=== PATIENT | female | born 2000 | race Caucasian/White ===

== ENCOUNTER 2025-06-16 13:23 | Inpatient (IN) ==
--- NOTE | 2025-06-16 13:39 | Emergency Department Note ---
Impression & Plan Near syncope, Pulmonary emboli, Anemia, Tachycardia, Vaginal delivery, UTI (urinary tract infection) ED Provider Note NAME: VITALY DOBBS AGE: 24 SEX: F : 2000 ARRIVES VIA: Ambulance INFORMANT: [Patient] ED PROVIDER(S): [Maurice Johnson MD] CHIEF COMPLAINT: Dizziness HISTORY OF PRESENT ILLNESS: Patient is a 24-year-old female who states that about an hour ago, she was sitting and suddenly felt dizzy, her heart was racing. She felt faint and her vision was blurry. She did not lose consciousness. No chest pain. She was not short of breath. She presents by ambulance for evaluation. The patient states that she did have a vaginal delivery just 2 days ago, she has not had excessive bleeding since discharge. There were no complications with the delivery. There has been no cough or fever. No urinary complaints. She has no history of previous syncope. PMHx/PSHx/Social Hx: See Below PHYSICAL EXAM: GENERAL: Patient is in no acute distress. HEENT: No acute trauma, normocephalic atraumatic, mucous membranes moist, no nasal congestion. NECK: No stridor, no adenopathy, no meningismus, trachea is midline. LUNGS: Clear to auscultation bilaterally, no wheeze, no rhonchi, breath sounds equal. HEART: Mildly tachycardic, regular rhythm, no murmurs. ABDOMEN: Soft, mildly tender in the lower abdomen bilaterally. No distention. EXTREMITIES: No cyanosis, full range of motion of all the joints without pain or difficulty. Mild bilateral pedal edema. NEUROLOGIC: Oriented x 3, no acute motor or sensory deficits, no focal weakness. SKIN: No jaundice, no diaphoresis. DIFFERENTIAL DIAGNOSIS: Vasovagal syncope, dehydration, anemia, electrolyte imbalance, UTI, PE, among others. EMERGENCY DEPARTMENT PROCEDURES: MEDICAL DECISION MAKING: There is a mild leukocytosis, this could be consistent with infection or just the stress of today's presentation. The patient was anemic at 10.5, there are no old values to use for comparison. There was a normal platelet count. No bandemia. No renal failure or significant electrolyte abnormality. There were some very subtle liver enzyme elevations, the bilirubin was normal. The patient appeared to be in a euthyroid state. ECG shows a sinus tachycardia, no ST elevation. Cardiac enzyme testing x 1 did not show findings of acute cardiac injury. Urinalysis did show evidence for infection. Bilateral lower extremity ultrasound did not show any findings of DVT. Chest CT did suggest pulmonary emboli in the left lower lung. Chest x-ray did not show mediastinal widening, pneumonia or pneumothorax. On exam, the patient was not hypoxic. She was at times tachycardic. Patient received IV saline for hydration. She was given IV ceftriaxone for the UTI. She eventually was given IV heparin as a bolus and drip. We used the low- dose of protocol. The patient presents with a near syncopal spell. She presents tachycardic. She is status post vaginal delivery. Certainly, PE seems likely as a cause for her presentation. I do think hospitalization, anticoagulation, further workup is warranted. I spoke with [employer]. I did speak with case management, the on-call hospitalist was consulted. Patient and her significant other are aware of the need for the hospital stay, Of note, patient did, at 1 point during her ER stay, complain of some right flank discomfort. She did not want anything for pain. This flank pain may be related to her urinary findings. Prior/Outside records/notes reviewed: Today's EMS notes describing her presentation and transport to this hospital. ECG per my interpretation: Indication was near syncope. The ECG shows a sinus tachycardia with a rate of 105. There is no acute ST elevation, there are no PVCs. The QTc is 449. Continuous Cardiac Monitoring per my interpretation: An order was placed for continuous cardiac monitoring. The monitor shows a rate of 102 with sinus tachycardia. Imaging/x-ray results per my interpretation: Chest x-ray does not show mediastinal widening, pneumonia or pneumothorax. Chronic Medical/Social conditions affecting care: Recent vaginal delivery just a few days ago. Care/Management discussed with: Lyric BARREL COATER-Dr. Rosen. Case management and the on-call hospitalist. Level of care consideration(s): After review of the information above and other included data: --I believe the patient requires escalation of care to admission Critical Care Note: I have personally spent 41 minutes of critical care time in the direct management of this patient. This includes bedside care, interpretation of diagnostic studies, and testing, discussion with consultants, patient, and family members, and other required patient management activities. This 41 minutes is in excess of all separately billable procedures. DISPOSITION: Admission Past Med/Surg History Problem List (Updated 06/16/25 @ 19:03 by Maurice Johnson MD) UTI (urinary tract infection) (Acute) Vaginal delivery (Acute) Tachycardia (Acute) Anemia (Acute) Pulmonary emboli (Acute) Near syncope (Acute) Anemia Abnormal urinalysis Palpitations Spell of dizziness Pulmonary emboli Medical History No significant medical problems Social History Smoking Status: Never smoker Preferred Language: Swazi Feels Safe at Home: Yes Home Meds Home Medications Medication Instructions Recorded Confirmed acetaminophen 325 mg tablet 325 mg PO UD PRN Pain 06/16/25 06/16/25 ferrous sulfate 325 mg (65 mg 325 mg PO DAILY 06/16/25 06/16/25 iron) tablet (FeroSul) ibuprofen 600 mg tablet 600 mg PO UD PRN Pain 06/16/25 06/16/25 norethindrone (contraceptive) 0.35 0.35 mg PO DAILY 06/16/25 06/16/25 mg tablet polyethylene glycol 3350 17 17 g PO UD 06/16/25 06/16/25 gram/dose oral powder Results & Data (ED) Vital Signs Vital Signs - 24 hr 06/16/25 13:47 06/16/25 13:50 06/16/25 13:50 Pulse Rate 100 H 80 Pulse Rate [Apical] 80 Pulse Strength [Apical] Respiratory Rate 14 14 Respiratory Effort / Characteristics Non-Labored Spontaneous Respiratory Depth Normal Respiratory Pattern Regular Blood Pressure Blood Pressure [Right Arm] 152/87 H Blood Pressure Mean Blood Pressure Mean [Right Arm] 108 Blood Pressure Position Blood Pressure Position [Right Arm] Semi-fowlers Pulse Oximetry 100 100 Oxygen Delivery Method Room Air Room Air Sepsis Recent Fever Within 48 Hours Sepsis New/Unexplained Change in Mental Status Sepsis Action Taken by Nursing 06/16/25 13:53 06/16/25 13:54 06/16/25 15:05 Pulse Rate 80 Pulse Rate [Apical] 88 98 H Pulse Strength [Apical] Normal Respiratory Rate 14 18 21 Respiratory Effort / Characteristics Non-Labored Spontaneous Non-Labored Spontaneous Non-Labored Spontaneous Respiratory Depth Normal Normal Normal Respiratory Pattern Regular Regular Blood Pressure 146/90 H Blood Pressure [Right Arm] 146/90 H 140/87 Blood Pressure Mean 108 Blood Pressure Mean [Right Arm] 108 104 Blood Pressure Position Semi-fowlers Blood Pressure Position [Right Arm] Pulse Oximetry 100 98 97 Oxygen Delivery Method Room Air Room Air Room Air Sepsis Recent Fever Within 48 Hours No Sepsis New/Unexplained Change in Mental Status No Sepsis Action Taken by Nursing No Action Required 06/16/25 17:00 06/16/25 17:45 Pulse Rate 101 H Pulse Rate [Apical] 88 Pulse Strength [Apical] Respiratory Rate 18 Respiratory Effort / Characteristics Non-Labored Spontaneous Respiratory Depth Normal Respiratory Pattern Regular Blood Pressure Blood Pressure [Right Arm] 138/88 Blood Pressure Mean Blood Pressure Mean [Right Arm] 104 Blood Pressure Position Blood Pressure Position [Right Arm] Semi-fowlers Pulse Oximetry 100 Oxygen Delivery Method Room Air Sepsis Recent Fever Within 48 Hours Sepsis New/Unexplained Change in Mental Status Sepsis Action Taken by [facility] Medications Current Medication List: was personally reviewed by me Laboratory Data Attestation: I reviewed the patient's lab results. 06/16/25 13:37 06/16/25 13:37 Lab Results 06/16/25 06/16/25 Range/Units 13:37 14:50 WBC 11.46 H (4.8-10.8) K/ul RBC 3.89 L (4.20-5.40) M/uL Hgb 10.5 L (12.0-16.0) g/dl Hct 31.6 L (37.0-47.0) % MCV 81.2 (80.0-100.0) fL MCH 27.0 (25.0-34.0) pg MCHC 33.2 (32.0-36.0) g/dL RDW Std Deviation 43.9 (36.4-46.3) fL RDW Coeff of Alan 14.8 H (11.5-14.5) % Plt Count 198 (130-400) K/uL MPV 10.3 (9.4-12.4) fL Immature Gran % (Auto) 1.3 % Neut % (Auto) 75.2 % Lymph % (Auto) 11.4 % [place] % (Auto) 8.0 % Eos % (Auto) 3.5 % Baso % (Auto) 0.6 % Neut # (Auto) 8.61 H (1.40-6.50) K/uL Lymph # (Auto) 1.31 (1.20-3.40) K/uL [place] # (Auto) 0.92 H (0.11-0.59) K/uL Eos # (Auto) 0.40 (0.00-0.50) K/uL Baso # (Auto) 0.07 (0.00-0.20) K/uL Immature Gran # (Auto) 0.15 (0.01-0.20) K/uL Sodium 142 (136-145) mmol/L Potassium 3.4 L (3.5-5.1) mmol/L Chloride 109 H (98-107) mmol/L Carbon Dioxide 25 (21-32) mmol/L Anion Gap 8 (3-11) BUN 7 (6-23) mg/dl Creatinine 0.51 L (0.6-1.2) mg/dl Est Cr Clr Drug Dosing 193.4 ml/min eGFR 134.43 BUN/Creatinine Ratio 13.7 (10-20) Glucose 103 H (70-99(Fasting)) mg/dl Calcium 8.9 (8.6-10.3) mg/dl Magnesium 1.8 (1.7-2.4) mg/dl Total Bilirubin 0.3 (0.2-1.0) mg/dl AST 40 H (13-39) U/L ALT 31 (7-52) U/L Alkaline Phosphatase 106 H (34-104) U/L Troponin I High Sens 5.3 (0-14) pg/ml Total Protein 6.1 (6.0-8.3) gm/dl Albumin 3.4 (3.4-5.0) gm/dl Globulin 2.7 (2.5-4.0) gm/dl Albumin/Globulin Ratio 1.3 (0.9-2) TSH 1.592 (0.300-4.500) uIu/ml Urine Color Yellow Urine Appearance Slightly Cloudy (Clear) Urine pH 7.5 (4.5-7.5) Ur Specific [place]der[place]ott 1.015 (1.000-1.030) Urine Protein 1+ H (Negative) Urine Glucose (UA) Negative (Negative) Urine Ketones 1+ H (Negative) Urine Blood 3+ H (Negative) Urine Nitrite Negative (Negative) Urine Bilirubin Negative (Negative) Urine Urobilinogen Negative (Negative) Ur Leukocyte Esterase 3+ H (Negative) Urine WBC (Auto) >50 H (0-5) /hpf Urine RBC (Auto) >20 H (0-2) /hpf U Hyaline Cast (Auto) 3-5 H (0-2) /lpf U Epithel Cells (Auto) 3-5 H (0-2) /hpf Urine Bacteria (Auto) 1+ H (None Seen) Urine RBC Not Reportable Urine WBC Not Reportable Ur Epithelial Cells Not Reportable Urine Bacteria Not Reportable Urine Comment Administered Medications Heparin Sodium/Dextrose (Heparin 54219 Unit/500 Ml D5w) 25,000 units in 500 mls @ 17 mls/hr IV .Q24H ZAC; Protocol Stop: 07/16/25 17:29 Last Admin: 06/16/25 17:59 Dose: 850 units/hr, 17 mls/hr Documented By: aruna Co-signed By: TUYET Discontinued Medications Heparin Sodium (Porcine) (Heparin Sod (Porcine) 1000 Unit/Ml) 1 units IV NOW ONE Stop: 06/16/25 17:31 Last Admin: 06/16/25 17:58 Dose: 4,000 units Documented By: aruna Co-signed By: TUYET Heparin Sodium/Dextrose (Heparin Iv Adult Wt-Based Low-Dose W/ Initial Bolus Protocol) 1 each IV NOW STA; Protocol Stop: 06/16/25 17:16 Last Admin: 06/16/25 18:44 Dose: Not Given Documented By: TUYET Sodium Chloride (Nss) 1,000 mls @ 999 mls/hr IV .Q1H1M ONE Stop: 06/16/25 14:33 Last Infusion: 06/16/25 15:04 Dose: Infused Documented By: Admin: 06/16/25 13:53 Dose: 999 mls/hr Documented By: RICHA Ceftriaxone Sodium (Rocephin) 2,000 mg in 50 mls @ 100 mls/hr IV NOW STA Stop: 06/16/25 18:25 Last Admin: 06/16/25 18:30 Dose: 100 mls/hr Documented By: TUYET Ioversol (Optiray 320 125ml) 110 ml IV ONCE ONE Stop: 06/16/25 15:01 Last Admin: 06/16/25 15:00 Dose: 110 ml Documented By: Imaging Data Radiologist's Impression: Chest CTA 06/16/25 13:33 CT angio chest PE protocol CT DOSE: 629.85 mGy.cm HISTORY: PE. TECHNIQUE: Multiple CTA images of the chest were obtained after the intravenous administration of 110 ml Optiray. Coronal and sagittal MIPS were obtained from the axial data set and were submitted for review. All measurements were obtained according to NASCET criteria. A dose lowering technique was utilized adhering to the principles of ALARA. COMPARISON STUDY: None FINDINGS: There is no pulmonary consolidation or pleural effusion. No pneumothorax. No enlarged adenopathy. No pericardial effusion. No thoracic aortic aneurysm or dissection. Pulmonary artery contrast bolus is suboptimal and there is spray artifact. There are a few possible tiny left lower lobe pulmonary emboli versus artifact. No other evidence of pulmonary embolism seen. No acute osseous findings. IMPRESSION: Limited exam. 1. Artifact versus a few tiny left lower lobe pulmonary emboli. 2. No other evidence of pulmonary embolism seen. ACT 112: Negative or not required by law. The above report was generated using voice recognition software. It may contain grammatical, syntax or spelling errors. Electronically signed by: Hiren Guo M.D. 06/16/2025 3:28 PM Chest X-Ray 06/16/25 13:33 SINGLE VIEW CHEST CLINICAL HISTORY: Generalized weakness. FINDINGS: An AP, portable, upright chest radiograph is obtained. No prior studies are available for comparison at the time of dictation. The cardiomediastinal silhouette is unremarkable. The lungs and pleural spaces are clear. No pneumothorax is seen. The bony thorax is grossly intact. IMPRESSION: No active disease in the chest. ACT 112: Negative or not required by law. Electronically signed by: Maurice Marroquin M.D. 06/16/2025 1:53 PM Venous Doppler Study 06/16/25 15:32 Technique: Venous ultrasound evaluation was performed utilizing grayscale, color Doppler and wave form evaluation. Images were also obtained with and without compression Findings: The bilateral common femoral, superficial femoral, popliteal, and visualized calf veins demonstrate normal anechoic lumens with full compressibility. Normal flow is seen on color Doppler images. Expected waveforms were produced with augmentation maneuvers Impression: No evidence of deep venous thrombosis Electronically signed by Facundo Bazan 06-16-2025 4:39 PM Discharge Plan Visit Data Chief Complaint: Syncope (Near Syncope) Stated Complaint: DIZZY ED Provider: Maurice Johnson Discharge Problem: Near syncope, Pulmonary emboli, Anemia, Tachycardia, Vaginal delivery, UTI (urinary tract infection) Patient Disposition: Admitted As Inpatient Condition: Fair Forms Stand Alone Forms: [facility] Prescriptions Prescriptions: No Action acetaminophen 325 mg tablet 325 mg PO UD PRN (Reason: Pain) ferrous sulfate [FeroSul] 325 mg (65 mg iron) tablet 325 mg PO DAILY ibuprofen 600 mg tablet 600 mg PO UD PRN (Reason: Pain) polyethylene glycol 3350 17 gram/dose powder 17 g PO UD norethindrone (contraceptive) 0.35 mg tablet 0.35 mg PO DAILY Referrals Referrals: PCP,NO [Primary Care Provider] - Discharge Problem: Pulmonary emboli Qualifiers: Pulmonary embolism type: unspecified Chronicity: acute Acute cor pulmonale presence: unspecified Qualified Code(s): I26.99 - Other pulmonary embolism without acute cor pulmonale Anemia Qualifiers: Anemia type: unspecified type Qualified Code(s): D64.9 - Anemia, unspecified UTI (urinary tract infection) Qualifiers: Urinary tract infection type: acute cystitis Hematuria presence: with hematuria Qualified Code(s): N30.01 - Acute cystitis with hematuria
[2025-06-16 13:53] LABS: Hematocrit (blood only) 31.6 % (37.0-47.0); Hemoglobin 10.5 g/dl (12.0-16.0); Immature Granulocytes # (auto) 0.15 K/uL (0.01-0.20); Immature Granulocytes % (auto) 1.3 %; Mean Corpuscular Hemoglobin 27.0 pg (25.0-34.0); Mean Corpuscular Volume 81.2 fL (80.0-100.0); Platelet Count 198 K/uL (130-400); RDW Standard Deviation 43.9 fL (36.4-46.3); Red Blood Count 3.89 M/uL (4.20-5.40); White Blood Count 11.46 K/ul (4.8-10.8)
[2025-06-16] MEDS: SODIUM CHLORIDE 0.9% 1,000 ML IV ONE ×2 (13:53→20:41)
--- NOTE | 2025-06-16 13:54 | XRay Report ---
SINGLE VIEW CHEST CLINICAL HISTORY: Generalized weakness. FINDINGS: An AP, portable, upright chest radiograph is obtained. No prior studies are available for c omparison at the time of dictation. The cardiomediastinal silhouette is unremarkable. The lungs and p leural spaces are clear. No pneumothorax is seen. The bony thorax is grossly intact. IMPRESSION: No active disease in the chest. ACT 112: Negative or not required by law. Electronically signed by: Maurice Marroquin M.D. 06/16/2025 1:53 PM
[2025-06-16 14:11] LABS: Alanine Aminotransferase 31.0 U/L (7-52); Albumin Globulin Ratio 1.3 (0.9-2); Alkaline Phosphatase 106.0 U/L (34-104); Anion Gap 8.0 (3-11); Bilirubin,Total 0.3 mg/dl (0.2-1.0); Blood Urea Nitrogen 7.0 mg/dl (6-23); Calcium 8.9 mg/dl (8.6-10.3); Carbon Dioxide 25.0 mmol/L (21-32); Chloride 109.0 mmol/L (98-107); Creatinine Clr Calc Pharmacy 193.4 ml/min; Globulin 2.7 gm/dl (2.5-4.0); Glucose 103.0 mg/dl (70-99(Fasting)); Magnesium 1.8 mg/dl (1.7-2.4); Potassium 3.4 mmol/L (3.5-5.1); Sodium 142.0 mmol/L (136-145); Total Protein 6.1 gm/dl (6.0-8.3)
[2025-06-16 14:27] LABS: Thyroid Stimulating Hormone 1.592 uIu/ml (0.300-4.500)
[2025-06-16] MEDS: OPTIRAY 320 125ml IV ONE (15:00)
[2025-06-16 15:10] LABS: Appearance Urine Slightly Cloudy (Clear); Glucose Urine UA Negative (Negative)
--- NOTE | 2025-06-16 15:29 | CT Scan Report ---
CT angio chest PE protocol CT DOSE: 629.85 mGy.cm HISTORY: PE. TECHNIQUE: Multiple CTA images of the chest were obtained after the intravenous administration of 110 ml Optiray. Coronal and sagittal MIPS were obtained from the axial data set and were submitted for review. All measurements were obtained according to NASCET criteria. A dose lowering technique was u tilized adhering to the principles of ALARA. COMPARISON STUDY: None FINDINGS: There is no pulmonary consolidation or pleural effusion. No pneumothorax. No enlarged adeno samira. No pericardial effusion. No thoracic aortic aneurysm or dissection. Pulmonary artery contrast bolus is suboptimal and there is spray artifact. There are a few possible tiny left lower lobe pulmon jing emboli versus artifact. No other evidence of pulmonary embolism seen. No acute osseous findings. IMPRESSION: Limited exam. 1. Artifact versus a few tiny left lower lobe pulmonary emboli. 2. No other evidence of pulmonary embolism seen. ACT 112: Negative or not required by law. The above report was generated using voice recognition software. It may contain grammatical, syntax o r spelling errors. Electronically signed by: Hiren Guo M.D. 06/16/2025 3:28 PM
[2025-06-16 15:35] LABS: Bacteria Urine Automated 1+ (None Seen); RBC Urine Automated >20 /hpf (0-2); WBC Urine Automated >50 /hpf (0-5)
--- NOTE | 2025-06-16 16:39 | Ultrasound Report ---
Technique: Venous ultrasound evaluation was performed utilizing grayscale, color Doppler and wave form evaluation. Images were also obtained with and without compression Findings: The bilateral common femoral, superficial femoral, popliteal, and visualized calf veins demonstrate normal anechoic lumens with full compressibility. Normal flow is seen on color Doppler images. Expected waveforms were produced with augmentation maneuvers Impression: No evidence of deep venous thrombosis Electronically signed by Facundo Bazan 06-16-2025 4:39 PM
--- NOTE | 2025-06-16 17:21 | History & Physical Report ---
Date of Service June 16, 2025 Assessment & Plan (1) Spell of dizziness: (2) Palpitations: (3) Pulmonary emboli: (4) Abnormal urinalysis: (5) Anemia: Plan Pt is a 24y/o F with PMHx significant for antepartum anemia, history of heart palpitations during with negative OP Ziopatch monitoring and GERD who presented to the ED via EMS with complaints of new-onset dizziness, palpitations and blurry vision. Was found to have a few possible tiny LLL pulmonary emboli vs artifact on her chest CTA. Recent . Had normal spontaneous vaginal delivery () on 06/13/25 at [facility]. Currently . Found to be tachycardic in ED. No recorded hypoxia. Chest CTA: No pulmonary consolidation or pleural effusion. No pneumothorax. No pericardial effusion. No thoracic aortic aneurysm or dissection. Pulmonary artery contrast bolus is suboptimal and there is spray artifact. There are a few possible tiny left lower lobe pulmonary emboli versus artifact. No other evidence of pulmonary embolism seen. Case discussed b/n ED provider and on-call SPECIAL DIET COOK, Dr. Rosen. Feels pt is stable from OB perspective for low-dose IV heparin given possible pulmonary emboli seen on chest CTA. #Dizzy spell with blurry vision #Palpitations #LLL pulmonary emboli vs artifact on chest CTA Low dose IV heparin initiated in ED --> continue BLE venous doppler US: no evidence of DVT EKG: sinus tachycardia, no acute ST changes Check TTE, re: r/o any underlying peripartum cardiomyopathy given presenting sx Telemetry monitoring #Recent on 06/13/25 at [facility] SPECIAL DIET COOK consulted for routine care Monitor vaginal bleeding, H/H while on low-dose IV heparin Pt currently -Need to ensure meds are safe for -IV Rocephin generally considered safe for mothers #Abnormal UA #Leukocytosis UA: 3+ LE, >50 WBC, 1+ bacteria Pt c/o increased urinary frequency; possible UTI Received IV Rocephin, pending urine cx results, re-assess need for cont. abx Trend WBC count #Anemia H/H appears stable Continue Fe supplementation Continue to monitor DVT Prophylaxis: SCDs/TEDs only for now ISO above Disposition: Admit to PCU Patient seen in collaboration with Dr. Meyers. Please see addendum. I spent a total of 55 minutes coordinating, documenting, and providing care for this patient excluding time spent in the performance of separately billed services or time spent by another provider/QHP. This included personally reviewing all current laboratories and imaging studies, medical reconciliation, outpatient chart review and discussion with specialists. This chart was completed in part utilizing Speech Voice Recognition Software. Grammatical errors, random word insertions, pronoun errors, and incomplete sentences are an occasional consequence of this system due to software limitations, ambient noise, and hardware issues. Any formal questions or concerns about the content, text, or information contained within the body of this dictation should be directly addressed to the provider for clarification. History of Present Illness Chief Complaint: Dizziness, palpitations Primary Care Provider: NO PCP Patient is a 24y/o F with PMHx significant for antepartum anemia, history of heart palpitations during with negative OP Ziopatch monitoring and GERD who presented to the ED via EMS with complaints of new-onset dizziness, palpitations and blurry vision. History obtained from the patient, discussion with ED provider and associated chart review. Was sitting on the couch this afternoon when she suddenly developed dizziness, blurry vision and palpitations. Recently had an uneventful spontaneous vaginal delivery on 06/13/25 at [facility]. Admits to a relatively uneventful course up until this afternoon when her symptoms developed. Feels her blurry vision and dizziness have improved since being in the ED. Still experiencing some intermittent bouts of palpitations. Patient did previously experience heart palpitations during . She had been evaluated by [facility] cardiology for this and had a Ziopatch applied which came back unremarkable. Patient also experienced anemia during therefore she was started on an iron supplementation. Otherwise, patient does not take any other medications at home on a regular basis. Feels her vaginal bleeding has been slowly lessening. Experiencing some slight abdominal cramping. Denies any SOB or chest pain. Admittedly she did experience some L-sided chest wall pain during but assumed this was secondary to normal -related weight/body changes. Denies any further L-sided chest wall pain since delivery. Currently nursing her daughter. Feels appetite has been good. Home Medications Medication Instructions Recorded Confirmed Type acetaminophen 325 mg tablet 325 mg PO UD PRN Pain 06/16/25 06/16/25 History ferrous sulfate 325 mg (65 mg 325 mg PO DAILY 06/16/25 06/16/25 History iron) tablet (FeroSul) ibuprofen 600 mg tablet 600 mg PO UD PRN Pain 06/16/25 06/16/25 History norethindrone (contraceptive) 0.35 0.35 mg PO DAILY 06/16/25 06/16/25 History mg tablet polyethylene glycol 3350 17 17 g PO UD 06/16/25 06/16/25 History gram/dose oral powder Past Med/Surg History Problem List (Updated 06/16/25 @ 19:03 by Maurice Johnson MD) UTI (urinary tract infection) (Acute) Vaginal delivery (Acute) Tachycardia (Acute) Anemia (Acute) Pulmonary emboli (Acute) Near syncope (Acute) Anemia Abnormal urinalysis Palpitations Spell of dizziness Pulmonary emboli Medical History No significant medical problems Social History Smoking Status: Never smoker Preferred Language: Bengali Feels Safe at Home: Yes Review of Systems Review of Systems: At least ten systems reviewed and negative, except as noted in the HPI. Physical Exam Physical Exam: Please refer to Dr. Meyers's addendum for physical examination findings. Results & Data Results & Data Vital Signs (Past 12 Hours) Vital Signs Pulse Pulse Resp BP BP Pulse Ox O2 Del Method 06/16/25 17:00 88 18 138/88 100 Room Air 06/16/25 15:05 98 H 21 140/87 97 Room Air 06/16/25 13:54 88 18 146/90 H 98 Room Air 06/16/25 13:53 80 14 146/90 H 100 Room Air 06/16/25 13:50 80 14 152/87 H 100 Room Air 06/16/25 13:50 80 14 100 Room Air 06/16/25 13:47 100 H Laboratory Results Short CBC 06/16/25 Range/Units 13:37 WBC 11.46 H (4.8-10.8) K/ul Hgb 10.5 L (12.0-16.0) g/dl Hct 31.6 L (37.0-47.0) % Plt Count 198 (130-400) K/uL BMP 06/16/25 13:37 Sodium 142 Potassium 3.4 L Chloride 109 H Carbon Dioxide 25 BUN 7 Creatinine 0.51 L Glucose 103 H Calcium 8.9 Liver Function 06/16/25 Range/Units 13:37 Total Bilirubin 0.3 (0.2-1.0) mg/dl AST 40 H (13-39) U/L ALT 31 (7-52) U/L Alkaline Phosphatase 106 H (34-104) U/L Albumin 3.4 (3.4-5.0) gm/dl Urine 06/16/25 Range/Units 14:50 Urine Color Yellow Urine Appearance Slightly Cloudy (Clear) Urine pH 7.5 (4.5-7.5) Ur Specific Osborne 1.015 (1.000-1.030) Urine Protein 1+ H (Negative) Urine Glucose (UA) Negative (Negative) Diagnostic Findings Chest CTA 06/16/25 13:33 CT angio chest PE protocol CT DOSE: 629.85 mGy.cm HISTORY: PE. TECHNIQUE: Multiple CTA images of the chest were obtained after the intravenous administration of 110 ml Optiray. Coronal and sagittal MIPS were obtained from the axial data set and were submitted for review. All measurements were obtained according to NASCET criteria. A dose lowering technique was utilized adhering to the principles of ALARA. COMPARISON STUDY: None FINDINGS: There is no pulmonary consolidation or pleural effusion. No pneumothorax. No enlarged adenopathy. No pericardial effusion. No thoracic aortic aneurysm or dissection. Pulmonary artery contrast bolus is suboptimal and there is spray artifact. There are a few possible tiny left lower lobe pulmonary emboli versus artifact. No other evidence of pulmonary embolism seen. No acute osseous findings. IMPRESSION: Limited exam. 1. Artifact versus a few tiny left lower lobe pulmonary emboli. 2. No other evidence of pulmonary embolism seen. ACT 112: Negative or not required by law. The above report was generated using voice recognition software. It may contain grammatical, syntax or spelling errors. Electronically signed by: Hiren Guo M.D. 06/16/2025 3:28 PM Chest X-Ray 06/16/25 13:33 SINGLE VIEW CHEST CLINICAL HISTORY: Generalized weakness. FINDINGS: An AP, portable, upright chest radiograph is obtained. No prior studies are available for comparison at the time of dictation. The cardiomediastinal silhouette is unremarkable. The lungs and pleural spaces are clear. No pneumothorax is seen. The bony thorax is grossly intact. IMPRESSION: No active disease in the chest. ACT 112: Negative or not required by law. Electronically signed by: Maurice Marroquin M.D. 06/16/2025 1:53 PM Venous Doppler Study 06/16/25 15:32 Technique: Venous ultrasound evaluation was performed utilizing grayscale, color Doppler and wave form evaluation. Images were also obtained with and without compression Findings: The bilateral common femoral, superficial femoral, popliteal, and visualized calf veins demonstrate normal anechoic lumens with full compressibility. Normal flow is seen on color Doppler images. Expected waveforms were produced with augmentation maneuvers Impression: No evidence of deep venous thrombosis Electronically signed by Facundo Bazan 06-16-2025 4:39 PM Medications Administered Discontinued Medications Sodium Chloride (Nss) 1,000 mls @ 999 mls/hr IV .Q1H1M ONE Stop: 06/16/25 14:33 Last Infusion: 06/16/25 15:04 Dose: Infused Documented By: Admin: 06/16/25 13:53 Dose: 999 mls/hr Documented By: RICHA Ioversol (Optiray 320 125ml) 110 ml IV ONCE ONE Stop: 06/16/25 15:01 Last Admin: 06/16/25 15:00 Dose: 110 ml Documented By: SH Code Status & VTE Plan Code Status FULL CODE VTE Prophylaxis Plan VTE Prophylaxis will be ordered: Yes Supervising Physician Co-Signing Physician Notes Pt seen and examined by me, care coordinated w/ BERTIN Esquivel, pls refer to her note above for further detail. Pt is a 24y/o F with hx of antepartum anemia, hx of heart palpitations during with negative OP Ziopatch monitoring and GERD who presents with complaints of new-onset dizziness, palpitations and blurry vision. Pt also delivered a baby vaginally on 06/13/2025 without any reported complications. Pt denies having any heavy bleeding, she is nursing and reports good oral intake, drinking plenty of fluids. Pt reports she was sitting on a couch today when she suddenly developed dizziness, blurry vision and palpitations. Feels her blurry vision and dizziness have improved since being in the ED. Still experiencing some intermittent bouts of palpitations. Denies shortness of breath or chest pain, however she did experience some L-sided chest wall pain during but assumed this was secondary to normal -related weight/body changes. Denies any further L-sided chest wall pain since delivery. In the ED dopplers were obtained and negative for PE, CT PE obtained and with possible tiny LLL PE. ED provider discussed with stock parts fabricator Dr. Rosen and starting on low dose iv heparin. Currently pt is sitting up in bed in NAD, she is awake, alert, answers appropriately. breathing on RA, lungs ctab , heart sounds regular. abdomen soft, nontender. + LE edema, moves extremities. Will cont. to monitor on tele. Will obtain echo to rule out possible cardiomyopathy associated w/ . Pt received ceftriaxone in ED for poss. UTI, follow cultx, re-assess the need for abx. MD Luigi (3) Pulmonary emboli Acute cor pulmonale presence: unspecified Chronicity: unspecified Pulmonary embolism type: unspecified Qualified Code(s): I26.99 - Other pulmonary embolism without acute cor pulmonale (5) Anemia Anemia type: unspecified type Qualified Code(s): D64.9 - Anemia, unspecified
[2025-06-16] MEDS: HEPARIN SOD (PORCINE) 1000 UNIT/ML IV ONE (17:58)
[2025-06-16] MEDS: HEPARIN 25000 UNIT/500 ML D5W 25,000 UNITS/500 ML BAG IV SCH (17:59)
[2025-06-16] MEDS: cefTRIAXone SODIUM 2,000 MG/50 ML BAG IV STA (18:30)
[2025-06-16] MEDS: Heparin IV Adult Wt-Based Low-Dose w/ INITIAL Bolus Protocol IV STA (18:44)
[2025-06-16] MEDS ORDERED: POLYETHYLENE (MIRALAX) 17 GM PACK PO PRN (20:20)
[2025-06-16] MEDS ORDERED: ONDANSETRON INJ 2 MG/ML 2 ML VIAL IV PRN (20:20)
[2025-06-16] MEDS ORDERED: MAGNESIUM HYDROXIDE SUSP 30 ML UDC PO PRN (20:20)
[2025-06-16] MEDS ORDERED: ACETAMINOPHEN 325 MG TAB PO PRN (20:20)
[2025-06-16] MEDS: POTASSIUM CHLORIDE / WTR 10 MEQ/100 ML PLCT IV SCH (22:27)
[2025-06-16] MEDS: MAGNESIUM SULFATE / D5W 1 GM/100 ML BAG IV ONE (22:27)
[2025-06-16] MEDS: SODIUM CHLORIDE 0.9% 1,000 ML IV SCH (22:28)
--- NOTE | 2025-06-16 22:29 | XRay Report ---
Exam(s): XR CXR 1 VIEW EXAM: XR Chest, 1 View CLINICAL HISTORY: Reason for exam: cp. TECHNIQUE: Frontal view of the chest. COMPARISON: 06/16/2025 at 1336 hours FINDINGS: Lungs: No consolidation. Pleural space: No significant pleural effusion. No pneumothorax. Heart: No cardiomegaly or pulmonary vascular congestion. Bones/joints: No acute fracture. No dislocation. IMPRESSION: No evidence of acute cardiopulmonary disease. Electronically signed by: Aislinn Arora M.D. 06/16/25 22:27 PM
--- NOTE | 2025-06-16 23:04 | CT Scan Report ---
Exam(s): CT ABDOMEN + PELVIS Without Contrast EXAM: CT Abdomen and Pelvis Without Intravenous Contrast CLINICAL HISTORY: Reason for exam: uti. kidney stone. TECHNIQUE: Axial computed tomography images of the abdomen and pelvis without intravenous contrast. CTDI is 22.48 mGy and DLP is 1119.46 mGy-cm. Automated exposure control was utilized for the study. A dose lowering technique was utilized adhering to the principles of ALARA. COMPARISON: No relevant prior studies available. FINDINGS: Lung bases are clear. Liver, gallbladder, spleen, pancreas, and adrenal glands are unremarkable. There is residual contrast filling the renal collecting systems and urinary bladder, limiting assessment for underlying stones. There is mild dilatation of the right-sided collecting system. Left-sided collecting system is normal. Appendix appears normal. There is no obstructive or inflammatory bowel change. Aorta is normal in caliber. There is no adenopathy, free fluid, or free air. Enlarged uterus is noted. There is hyperdense material filling the endometrial cavity. There are no acute osseous findings. IMPRESSION: 1. Residual contrast in the renal collecting systems in the urinary bladder, limiting assessment for underlying stones. 2. Mild right-sided hydroureteronephrosis. 3. Enlarged uterus. Hyperdense material in the endometrial cavity may represent blood, with retained products not excluded. Electronically signed by: Aislinn Arora M.D. 06/16/25 23:03 PM
[2025-06-16] MEDS: POTASSIUM CHLORIDE 20 MEQ/15 ML UDC PO STA (23:51)
[2025-06-17] MEDS: ENOXAPARIN 100 MG/1ML SYR SQ STA (00:15)
[2025-06-17] MEDS: PIPERACILLIN/TAZOBACTAM 4.5 GM/100 ML BAG IV ONE (04:15)
[2025-06-17 06:27] LABS: Hematocrit (blood only) 29.2 % (37.0-47.0); Hemoglobin 9.7 g/dl (12.0-16.0); Immature Granulocytes # (auto) 0.13 K/uL (0.01-0.20); Immature Granulocytes % (auto) 1.3 %; Mean Corpuscular Hemoglobin 27.1 pg (25.0-34.0); Mean Corpuscular Volume 81.6 fL (80.0-100.0); Platelet Count 202 K/uL (130-400); RDW Standard Deviation 43.7 fL (36.4-46.3); Red Blood Count 3.58 M/uL (4.20-5.40); White Blood Count 9.89 K/ul (4.8-10.8)
[2025-06-17 06:34] LABS: Anion Gap 8.0 (3-11); Bilirubin,Total 0.4 mg/dl (0.2-1.0); Calcium 8.1 mg/dl (8.6-10.3); Carbon Dioxide 21.0 mmol/L (21-32); Chloride 112.0 mmol/L (98-107); Magnesium 2.0 mg/dl (1.7-2.4); Potassium 3.9 mmol/L (3.5-5.1); Sodium 141.0 mmol/L (136-145)
[2025-06-17 06:40] LABS: Alanine Aminotransferase 31.0 U/L (7-52); Albumin Globulin Ratio 1.3 (0.9-2); Alkaline Phosphatase 93.0 U/L (34-104); Blood Urea Nitrogen 6.0 mg/dl (6-23); Creatinine Clr Calc Pharmacy 211.1 ml/min; Globulin 2.4 gm/dl (2.5-4.0); Glucose 80.0 mg/dl (70-99(Fasting)); Total Protein 5.5 gm/dl (6.0-8.3)
--- NOTE | 2025-06-17 07:35 | Ultrasound Report ---
EXAM: US renal/blad retro comp CLINICAL HISTORY: kidney stone? Rt hydroureteronephrosis on CT scan. TECHNIQUE: Ultrasound retroperitoneal performed in greyscale and Doppler imaging. COMPARISON: None. FINDINGS: Kidneys: The right kidney measures 14.4 x 5.3 x 5.2 cm and demonstrates mild ureterohydronephrosis. The left kidney measures 12.7 x 5.7 x 6.4 cm. Evaluation is somewhat limited. No renal cysts, calculi, or focal masses are identified. Renal parenchymal echogenicity is within normal limits. Cortical thickness is preserved bilaterally. The renal pelvis is unremarkable. Color Doppler demonstrates preserved renal vascularity. Liver and Spleen: The imaged portions of the liver and spleen are unremarkable. Urinary Bladder: The urinary bladder is unremarkable as per the images. Only the left ureteric jet is visualized; the right ureteric jet is not identified. IMPRESSION: Mild right-sided ureterohydronephrosis with absence of the right ureteric jet on bladder evaluation. Correlation with clinical findings and further assessment as clinically needed. Electronically signed by Lazaro Allred 06-17-2025 07:35 AM
--- NOTE | 2025-06-17 08:47 | Communication Note ---
Date of Service: June 17, 2025 Yesterday early in the night code gulshan was called as patient was feeling fluttering in chest and heart rates were in 150's. ekg showed sinus tachycardia. Heart rates improved to low 100's. BP was ok. bedside echo by critical care was ok. Thought to be dehydrated and 1lt fluid bolus given and placed on maintenance fluids. was on iv heparin for tiny PE. Patient continued to have chest tightness and was concerned side effect from iv heparin. heparin was chanaged to lovenox. ct abd/pelvis was ordered which showed retained products in uterus. LICENSED INVESTMENT SALES ASSISTANT was already consulted. Placed on zosyn. There was s right hydroureter and stone was not seen because contrast was still in system. Ordered renal US and urology consult. patient and also wanted pul consult to verify if its true PE or artifact. Told then can review with radiology in am.
[2025-06-17] MEDS: PIPERACILLIN/TAZOBACTAM 4.5 GM/100 ML BAG IV SCH (09:26)
[2025-06-17] MEDS ORDERED: BENZOCAINE 20% SPRY 85 APPLN/85 GM CAN EXT PRN (09:36)
--- NOTE | 2025-06-17 09:55 | Urology Consultation ---
Date of Consultation June 17, 2025 Assessment & Plan (1) Hydronephrosis, right: Plan 24yo female ([place] [facility] admitted with c/o dizziness, palpitations, and found to have possible PE vs artifact on her chest CTA - Urology asked to evaluate patient due to finding of right hydronephrosis on CT/JENN[facility] imaging. She is afebrile, normotensive, HR 75 this morning. No leukocytosis. Creatinine stable 0.46. UA: 3+ LE, >50 WBC, 1+ bacteria. Urine culture final with more than 3 times of organisms, all high counts probable skin elvia. Received Ceftriaxone in the ED. Continues on Zosyn. CT reviewed and showed mild right sided hydronephrosis. There is no obvious stone/focal obstruction but assessment is limited due to contrast. Renal ultrasound showed mild right sided hydronephrosis. She does endorse intermittent right flank pain, not severe/persistent. Discussed with patient CT and ultrasound findings of right hydronephrosis and this is likely due to physiologic hydronephrosis of /enlarged uterus. Since she is stable from standpoint without fever, severe pain, or infectious symptoms, we discussed continued observation and she is in favor of this. No plan for acute intervention at this time. Continue antibiotics and tailor per culture sensitivities. Can bladder scan as needed. Continue supportive care and management per primary team. If patient develops severe flank pain, fever, or other infectious symptoms, we can revisit ureteral stent placement. Urology will follow along, please contact us with any questions/concerns or changes in status. Case/plan reviewed with History of Present Illness Attending Physician: Soren Estes MD History of Present Illness 24 year old female with recent with vaginal delivery on 06/13 [place] [facility] who presented to the ED via EMS on 06/16/25 with complaints of new-onset dizziness, palpitations and blurry vision. She was afebrile, hypertensive and tachycardic on arrival. Labs showed mild leukocytosis and stable renal function. Urinalysis showed 3+ blood, 3+ LE, >50WBC, >20RBC, 3-5Epithelia cells, 1+bacteria, negative nitrite. Was found to have a possible tiny LLL pulmonary emboli vs artifact on her chest CTA. She was placed on IV Heparin. Patient then developed fluttering in the chest and heart rates were in the 150s. Patient was thought to be dehydrated and was given a fluid bolus. Due to chest tightness and was concerned this was a side effect from IV heparin, was changed to Lovenox. A CT abd pelvis was also performed showing mild right sided hydronephrosis with residual contrast in the renal collecting system in the urinary bladder which limits assessment for underlying stones and a large uterus with hyperdense material in the endometrial cavity may represent blood with retained products not excluded. Admitted to medicine service. Placed on Zosyn. HARDWARE INSTALLER consulted. Urology consulted for right hydr onephrosis. Patient was seen at bedside this morning. She is awake and resting in bed on arrival. No acute distress. Appears comfortable. She reports intermittent right flank pain, not severe or persistent. Does also report left sided pain, was especially noticeable after voiding. Feels she is voiding without issue and emptying the bladder. Denies prior history or history of recurrent UTI. She does report a UTI a few months ago for which she was treated with antibiotics and symptoms resolved. Allergies Allergy/AdvReac Type Severity Reaction Status Date / Time iv contrast Allergy chest Uncoded 06/17/25 14:13 tightness, sob, palpitations Home Medications Medication Instructions Recorded Confirmed Type acetaminophen 325 mg tablet 325 mg PO UD PRN Pain 06/16/25 06/16/25 History ferrous sulfate 325 mg (65 mg 325 mg PO DAILY 06/16/25 06/16/25 History iron) tablet (FeroSul) norethindrone (contraceptive) 0.35 0.35 mg PO DAILY 06/16/25 06/16/25 History mg tablet polyethylene glycol 3350 17 17 g PO UD 06/16/25 06/16/25 History gram/dose oral powder apixaban 5 mg tablet (Eliquis) 5 mg PO BID #74 tabs 06/17/25 Rx cefdinir 300 mg capsule 300 mg PO BID 5 days #10 caps 06/17/25 Rx Patient History Medical History No significant medical problems Social History Smoking Status: Never smoker Hx Alcohol Use: No Hx Substance Use: No Preferred Language: Kazakh Communication Ability: Effective Property Analyst Required: No Beliefs That Will Affect Care: None Current Living Situation: Spouse Feels Safe at Home: Yes Assistive Devices: None Review of Systems Review of Systems: All systems reviewed & are unremarkable except as noted in HPI & below Physical Exam Constitutional: no acute distress Respiratory: no respiratory distress and no labored breathing Musculoskeletal: Head/Neck/Chest: normocephalic Skin: No visible rashes or lesions to exposed skin areas Neurologic: moves all extremities and awake Psychiatric: A+Ox3, euthymic affect Results & Data Vital Signs (Past 12 Hours) Vital Signs Temp Pulse Pulse Resp BP Pulse Ox O2 Del Method 06/17/25 07:33 36.8 C 75 18 122/82 98 Room Air 06/17/25 04:40 36.8 C 99 H 16 135/78 99 Room Air 06/16/25 22:06 93 H PG Care Time/CCT Total # of Minutes Spent Total Time Spent with Patient: Total time spent is greater than 50% in coordination of care (as documented) at patient's floor/unit and/or counseling patient: Coding Level of Care Code 53080 IN/OBS CONSULT LVL 3,45M Diagnoses Hydronephrosis, right N13.30
[2025-06-17] MEDS: FERROUS SULFATE 325 MG TAB PO SCH (10:06)
[2025-06-17] MEDS: ENOXAPARIN 100 MG/1ML SYR SQ SCH (10:15)
[2025-06-17 11:55] VITALS: BP 134/71; PULSE 71; RESP 20; TEMP 97.9; O2SAT 96
--- NOTE | 2025-06-17 14:33 | Discharge Summary ---
Date of Service June 17, 2025 Admission HPI Per Admitting Provider Patient is a 24y/o F with PMHx significant for antepartum anemia, history of heart palpitations during with negative OP Ziopatch monitoring and GERD who presented to the ED via EMS with complaints of new-onset dizziness, palpitations and blurry vision. History obtained from the patient, discussion with ED provider and associated chart review. Was sitting on the couch this afternoon when she suddenly developed dizziness, blurry vision and palpitations. Recently had an uneventful spontaneous vaginal delivery on 06/13/25 at [facility]. Admits to a relatively uneventful course up until this afternoon when her symptoms developed. Feels her blurry vision and dizziness have improved since being in the ED. Still experiencing some intermittent bouts of palpitations. Patient did previously exp erience heart palpitations during . She had been evaluated by [facility] cardiology for this and had a Ziopatch applied which came back unremarkable. Patient also experienced anemia during therefore she was started on an iron supplementation. Otherwise, patient does not take any other medications at home on a regular basis. Feels her vaginal bleeding has been slowly lessening. Experiencing some slight abdominal cramping. Denies any SOB or chest pain. Admittedly she did experience some L-sided chest wall pain during but assumed this was secondary to normal -related weight/body changes. Denies any further L-sided chest wall pain since delivery. Currently nursing her daughter. Feels appetite has been good. Admission Exam Per Admitting Provider Currently pt is sitting up in bed in NAD, she is awake, alert, answers appropriately. breathing on RA, lungs ctab , heart sounds regular. abdomen soft, nontender. + LE edema, moves extremities. Principal Diagnosis LLL PE UTI Discharge Exam GENERAL: Alert and oriented x3. NAD, on RA. HEENT: No pallor, no icterus. Pupils equal, round and reactive to light. Oral mucosa moist. NECK: No JVD, no neck masses. HEART: S1 and S2 heard. Regular rate and rhythm. No murmur, no gallop. RESPIRATORY SYSTEM: Normal AP diameter. No accessory muscle use. No wheezing, no crackles. ABDOMEN: Soft, bowel sounds present, nontender, no distention. CENTRAL NERVOUS SYSTEM: No facial droop. Speech is clear. Obeys simple commands. Moves extremities. EXTREMITIES: No edema, no erythema seen. Discharge Data Allergies Allergy/AdvReac Type Severity Reaction Status Date / Time iv contrast Allergy chest Uncoded 06/17/25 14:13 tightness, sob, palpitations Consultations 06/16/25 17:15 Consult Obstetrics Routine 06/16/25 17:16 ED Decision to Admit Stat 06/17/25 08:00 Consult Urology Routine Ordered Studies 06/16/25 13:33 CT angio chest PE protocol Stat 06/16/25 15:32 US venous doppler LE BI Stat 06/16/25 20:19 CT Abd and Pelvis [CT abd pelvis wo con] Urgent 06/17/25 08:30 US Renal Bladder [US renal/blad retro comp] Routine Hospital Course (1) Spell of dizziness: (2) Palpitations: (3) Pulmonary emboli: (4) Abnormal urinalysis: (5) Anemia: Plan Pt is a 24y/o F with PMHx significant for antepartum anemia, history of heart palpitations during with negative OP Ziopatch monitoring and GERD who presented to the ED via EMS with complaints of new-onset dizziness, palpitations and blurry vision. Was found to have a few possible tiny LLL pulmonary emboli vs artifact on her chest CTA. Recent . Had normal spontaneous vaginal delivery () on 06/13/25 at [facility]. Currently . Found to be tachycardic in ED. No recorded hypoxia. Chest CTA: No pulmonary consolidation or pleural effusion. No pneumothorax. No pericardial effusion. No thoracic aortic aneurysm or dissection. Pulmonary artery contrast bolus is suboptimal and there is spray artifact. There are a few possible tiny left lower lobe pulmonary emboli versus artifact. No other evidence of pulmonary embolism seen. Case discussed b/n ED provider and on-call [facility], Dr. Rosen. Feels pt is stable from OB perspective for low-dose IV heparin given possible pulmonary emboli seen on chest CTA. She was managed for the following: #Dizzy spell with blurry vision likely iso recent delivery/acute stress to body #Palpitations #LLL pulmonary emboli vs artifact on chest CTA Low dose IV heparin initiated in ED for concerns of provoked PE. BLE venous doppler US: no evidence of DVT EKG: sinus tachycardia, no acute ST changes TTE: EF 55-60%, LV and RV is nl in size and fxn. No RWMA. No ASD. d/w CTA chest w/ diff radiology today, CT PE protocol recommended. Pt and her didn't want CT PE imaging done, they are agreeable to eliquis. Likely allergic reaction to iv contrast: Pt states she had chest tightness and subjective sob after getting iv contrast yesterday, pt was code purple later in the evening. Now she is hemodynamically stable and has no concerns. Pt was made aware of inconclusive nature of the CTA chest (poor study) done yesterday after I discussed her CTA chest with diff radiology today. It was recommended she get CT PE protocol to definitely rule in or out PE. Pt was explained that we will use benadryl and steroid to minimize the allergic reaction to contrast. Pt and her wanted time to think about it and later on notified RN that they would like to continue w/ eliquis now and will f/u with hematology as OP rather than go through CT PE protocol. I have advised them to closely f/u w/ PCP office for ongoing evaluation and further continuation of her blood thinner. #Recent on 06/13/25 at [facility] consulted for routine care Monitor vaginal bleeding, H/H while on low-dose IV heparin Pt currently -Need to ensure meds are safe for -IV Rocephin generally considered safe for mothers d/w Ob fernando Booker from his POV for discharge. #Abnormal UA #Leukocytosis #Concern for UTI #Mild right-sided hydroureteronephrosis UA: 3+ LE, >50 WBC, 1+ bacteria Pt c/o increased urinary frequency; possible UTI Received IV Rocephin, UCx pending. Pt and her would like to go home. PO atb on dc to complete the course for UTI d/w fernando stewart from their POV for dc. #Anemia H/H appears stable Continue Fe supplementation Continue to monitor DVT Prophylaxis: on lovenox Patient is being discharged to home with following instructions at the point of discharge: Follow-up with your primary care physician within a week time and likely you will need labs CBC/CMP/magnesium/phosphorus. As discussed at the bedside there was concern of left lower lobe pulmonary emboli [blood clot], you will be discharged on Eliquis. Take Eliquis 10 mg twice a day from the evening of 06/17/2025 for 7 days and then take 5 mg twice a day thereafter. Follow-up with hematology physician in a month time upon discharge, coordinate with your PCP office to set up the referral. Avoid NSAIDs like ibuprofen/naproxen while on blood thinner. Because of concern of UTI, you will be discharged on antibiotic to complete 5 to 7 days treatment. Your urine culture results has not resulted, as discussed at the bedside recommend that you follow-up with the PCP office in 3 to 5 days to follow-up on final results of your urine test. Follow-up with your high school principal in a week time upon discharge. For concern of right hydronephrosis likely in the setting of recent , urology evaluated you, no further recommendation at this moment. Follow-up with urology in 1 to 2 months time upon discharge. Coordinate with your PCP office to set up the referral. If you develop any severe flank pain, fever or pain or burning while passing urine, you will need to have emergent urology evaluation, recommend you come back to the ED if such happens. Take your medications as prescribed. Please make sure that you are able to get your medications today by calling your pharmacy before you leave the hospital so that your treatment continuity is not broken. Home Health Attestation I certify that this patient is under my care and that I, or a physicians unit assistant working with me, had a face to-face encounter that meets the home health [id number] encounter requirements with this patient. The encounter with the patient was in whole, or in part, for the following medical condition, which is the primary reason for home health care (list medic al condition): I certify that, based on my findings, the following services are medically necessary home health services: My clinical findings support the need for the above services because: Further, I certify that my clinical findings support that this patient is homebound (i.e. absences from home require considerable and taxing effort and are for medical reasons or evangelical services or infrequently or of short duration when for other reasons) because: Certification for Home Health Services: Based on the above findings, I certify that this patient is confined to the home and needs intermittent nursing home care, physical therapy and/or speech therapy or continues to need occupational therapy. The patient is under my care, and I have initiated the establishment of the plan of care. This patient will be followed by a physician who will periodically review the plan of care. Total Time Total Time Spent Total Time Spent (In Minutes): 45 Discharge Plan Discharge Items Patient Disposition: Home - Self-Care Reason For Visit: ACUTE PE Discharge Diagnosis: #Dizzy spell with blurry vision #Palpitations #LLL pulmonary emboli vs artifact on chest CTA #Recent on 06/13/25 at [facility] #Likely UTI Condition on Discharge: Fair Activity: Resume your previous activity Non-emergency contact: Primary Care Provider Call non-emergency contact if: you have any medication questions Follow-up/Referrals: Cynthia Bell PA-C [Outside Practitioners] - (Date & Time 06/22/2025 2:40 PM Provider: Cynthia Bell PA-C [facility] ) Diet: Regular Addtl Attending Provider Instructions: Follow-up with your primary care physician within a week time and likely you will need labs CBC/CMP/magnesium/phosphorus. As discussed at the bedside there was concern of left lower lobe pulmonary emboli [blood clot], you will be discharged on Eliquis. Take Eliquis 10 mg twice a day from the evening of 06/17/2025 for 7 days and then take 5 mg twice a day thereafter. Follow-up with hematology physician in a month time upon discharge, coordinate with your PCP office to set up the referral. Avoid NSAIDs like ibuprofen/naproxen while on blood thinner. Because of concern of UTI, you will be discharged on antibiotic to complete 5 to 7 days treatment. Your urine culture results has not resulted, as discussed at the bedside recommend that you follow-up with the PCP office in 3 to 5 days to follow-up on final results of your urine test. Follow-up with your high school principal in a week time upon discharge. For concern of right hydronephrosis likely in the setting of recent , urology evaluated you, no further recommendation at this moment. Follow-up with urology in 1 to 2 months time upon discharge. Coordinate with your PCP office to set up the referral. If you develop any severe flank pain, fever or pain or burning while passing urine, you will need to have emergent urology evaluation, recommend you come back to the ED if such happens. Take your medications as prescribed. Please make sure that you are able to get your medications today by calling your pharmacy before you leave the hospital so that your treatment continuity is not broken. Pending Studies at Discharge: Yes Stand-Alone Forms: My [facility], Smoking Cessation Medications and DC Order Prescriptions: New Eliquis 5 mg tablet 5 mg PO BID Qty: 74 0RF Rx Instructions: 10 mg twice a day x 7 days, then 5 mg twice a day thereafter cefdinir 300 mg capsule 300 mg PO BID 5 Days Qty: 10 0RF Continued acetaminophen 325 mg tablet 325 mg PO UD PRN (Reason: Pain) ferrous sulfate [FeroSul] 325 mg (65 mg iron) tablet 325 mg PO DAILY polyethylene glycol 3350 17 gram/dose powder 17 g PO UD norethindrone (contraceptive) 0.35 mg tablet 0.35 mg PO DAILY Discontinued ibuprofen 600 mg tablet 600 mg PO UD PRN (Reason: Pain) Discharge Orders: Discharge Order (Routine); Ordered 06/17/25 Ordered By: Soren Estes Admission Data Admit Date/Time: 06/16/25 17:20 Attending Provider: Soren Estes Admit Provider: Jai Meyers Primary Care Provider: PCP,NO Other Providers: Jai Meyers; Kaden Rosen; Ismael Renteria; Patt Potter; Don Allison; Lillian Akers; Travis Rodriguez; Miriam Rome; Romero Loo; Avinash Lockhart; Rao Donahue; Iker Kennedy
[2025-06-17] MEDS ORDERED: cefTRIAXone SODIUM 2,000 MG/50 ML BAG IV SCH (18:00)
--- NOTE | 2025-06-19 15:07 | Electrocardiogram Report ---
Test Reason : Blood Pressure : */* mmHG Vent. Rate : 86 BPM Atrial Rate : 86 BPM P-R Int : 130 ms QRS Dur : 76 ms QT Int : 362 ms P-R-T Axes : 58 77 31 degrees QTcB Int : 433 ms Sinus rhythm with marked sinus arrhythmia Otherwise normal ECG When compared with ECG of 16-Jun-2025 20:12, (unconfirmed) No significant change was found Confirmed by Esteban Rodríguez ([id number]) on 06/19/2025 3:07:29 PM Referred By: REFERRED SELF Confirmed By: Esteban Rodríguez
== END 2025-06-17 14:52 | disposition home or self-care (01) | DRG 776 ==
LOC: ED 13:23 → EDINP 17:20 → SUATTDRO 17:20 → EDINP 20:21 → 2S 22:01